=== PATIENT | female | born 1980 | race Caucasian/White ===

== ENCOUNTER 2021-05-17 21:50 | Emergency (ER) | payer BC ==
--- NOTE | 2021-05-17 22:31 | NUR ---
CALLED TO TRIAGE, NO ASNWER
--- NOTE | 2021-05-17 23:07 | NUR ---
CALLED TO TRIAGE ONCE AGAIN NOT IN WAITING ROOM
--- NOTE | 2021-05-17 23:15 | NUR ---
STILL NOT IN WAITING AFTER BEING CALLED FOR TRIAGE ASSESSMENT
== END 2021-05-17 23:16 | disposition left against medical advice (07) ==
LOC: ER 22:24
DX: Z53.21 Procedure and treatment not carried out due to patient leaving prior to being seen by health care provider (principal)